=== PATIENT | female | born 1965 | race African-American/Black ===

== ENCOUNTER 2025-06-15 22:51 | Emergency (ER) | payer OTHER ==
[~2025-06-15] VITALS: Ht 157.5 cm; Wt 65.5 kg
[2025-06-15 23:20] VITALS: TEMP 98.305304
[2025-06-16] LABS: PLATELET COUNT (AUTO) 282 K/uL (150-450); RED BLOOD CELL COUNT(AUTO) 4.27 MIL/uL (4.50-5.90); RED CELL DISTRIBUTION WIDTH 14.3 % (11.5-14.5); WHITE BLOOD COUNT (AUTO) 6.3 K/uL (4.5-11.0)
[2025-06-16 00:08] LABS: CALCIUM, TOTAL 8.5 mg/dL (8.8-10.5); CREATININE 0.95 mg/dL (0.60-1.30); GLOMERULAR FILTR. RATE CALC > 60 mL/min (>60); GLUCOSE,RANDOM 110 mg/dL (70-110); SODIUM SERUM 138 mmol/L (136-145); UREA NITROGEN, BLOOD 9 mg/dL (7-18)
[2025-06-16 00:21] LABS: TROPONIN I-HIGH SENSITIVITY Less Than 4 ng/L (<76)
[2025-06-16 00:54] VITALS: BP 144/71; PULSE 79; RESP 16; O2SAT 99
[2025-06-16 01:47] LABS: APPEARANCE,URINE CLEAR (CLEAR); GLUCOSE, URINE (UA) NEGATIVE (NEGATIVE); LEUKOCYTE ESTERASE ,URINE NEGATIVE (NEGATIVE); NITRATE,URINE NEGATIVE (NEGATIVE); OCCULT BLOOD,URINE NEGATIVE (NEGATIVE); SPECIFIC GRAVITIY, URINE 1.010 (1.003-1.030)
[2025-06-16] MEDS: KETOROLAC TROMETHAMINE 30 MG/ML VIAL IM ONE (01:56)
[2025-06-16] MEDS ORDERED: TRAM50TA5 PO (02:00)
== END 2025-06-16 02:10 | disposition home or self-care (01) ==
LOC: EDSEX 23:59 → EMS 23:59
DX: R07.89 Other chest pain (principal); R07.81 Pleurodynia; Z88.5 Allergy status to narcotic agent
CPT/HCPCS: 99285; 71045; 80048; 81003; 84484; 85025; 36415; 93005; 96372; J1885